=== PATIENT | female | born 1965 | race African-American/Black ===

== ENCOUNTER 2017-01-04 06:31 | Day surgery (SDC) | payer BC, OTHER ==
[2017-01-04] MEDS ORDERED: NS 500 ML IV 500 ML IV ONE (07:19)
[2017-01-04] MEDS ORDERED: TETRACAINE 0.5% OPHTH 1 DOSE AFFEYE ONE ×3 (07:30→10:10)
[2017-01-04] MEDS ORDERED: VIGAMOX 0.5% OPHTH 1 DOSE AFFEYE ONE ×5 (07:31→10:31)
[2017-01-04] MEDS ORDERED: PROLENSA OPHTH 1 DOSE AFFEYE ONE (07:42)
[2017-01-04] MEDS ORDERED: ALPHAGAN-P OPHTH 1 DOSE AFFEYE ONE (07:43)
[2017-01-04] MEDS ORDERED: CYCLOGYL 1% OPHTH 1 DOSE OP ONE ×3 (07:44→07:48)
[2017-01-04] MEDS ORDERED: AK-DILATE 2.5% OPHTH 1 DOSE OP ONE ×3 (07:44→07:48)
[2017-01-04] MEDS ORDERED: MYDRIACIL OPHTH 1 DOSE AFFEYE ONE ×3 (07:44→07:48)
[2017-01-04] MEDS ORDERED: BETADINE OPHTH SOLN 5% EACHEYE ONE (10:04)
[2017-01-04] MEDS ORDERED: XYLOCAINE-MPF 1% IJ ONE (10:10)
[2017-01-04] MEDS ORDERED: DUOVISC IO ONE (10:10)
[2017-01-04] MEDS ORDERED: ADRENALINE CHL INJ IJ ONE (10:10)
[2017-01-04] MEDS ORDERED: BSS OPHTH (PLAIN) 500 ML with VANCOMYCIN HCL 500 MG VIAL 25 MG, ADRENALINE CHL INJ 1 MG IR ONE ×3 (10:11)
[2017-01-04 13:48] VITALS: BP 152/76
[2017-01-04] MEDS ORDERED: DIPRIVAN VIAL ONE (15:24)
== END 2017-01-04 10:58 | disposition home or self-care (01) ==
LOC: SURG1 06:31
PROVIDERS: ATTEND Ophthalmology
PROC: 08RJ3JZ Replacement of Right Lens with Synthetic Substitute, Percutaneous Approach (ICD-10-PCS; principal; 2017-01-04 09:45)
PROC: 08DJ3ZZ Extraction of Right Lens, Percutaneous Approach (ICD-10-PCS; principal; 2017-01-04 09:45)
DX: H25.11 Age-related nuclear cataract, right eye (principal); H25.011 Cortical age-related cataract, right eye; H25.041 Posterior subcapsular polar age-related cataract, right eye
CPT/HCPCS: A4217; J0170; J3370; J3490

== ENCOUNTER 2017-02-15 07:53 | Day surgery (SDC) | payer BC ==
[2017-02-15] MEDS ORDERED: TETRACAINE 0.5% OPHTH 1 DOSE AFFEYE ONE ×4 (08:45→13:07)
[2017-02-15] MEDS ORDERED: VIGAMOX 0.5% OPHTH 1 DOSE AFFEYE ONE ×5 (08:46→13:26)
[2017-02-15] MEDS ORDERED: PROLENSA OPHTH 1 DOSE AFFEYE ONE (08:57)
[2017-02-15] MEDS ORDERED: ALPHAGAN-P OPHTH 1 DOSE AFFEYE ONE (08:58)
[2017-02-15] MEDS ORDERED: CYCLOGYL 1% OPHTH 1 DOSE OP ONE ×4 (08:59→09:02)
[2017-02-15] MEDS ORDERED: MYDRIACIL OPHTH 1 DOSE AFFEYE ONE ×4 (08:59→09:02)
[2017-02-15] MEDS ORDERED: AK-DILATE 2.5% OPHTH 1 DOSE OP ONE ×4 (08:59→09:02)
[2017-02-15] MEDS ORDERED: NS 500 ML IV 500 ML IV ONE (09:08)
[2017-02-15] MEDS ORDERED: BETADINE OPHTH SOLN 5% EACHEYE ONE (12:48)
[2017-02-15] MEDS ORDERED: BSS OPHTH (PLAIN) 500 ML with VANCOMYCIN HCL 500 MG VIAL 25 MG, ADRENALINE CHL INJ 1 MG IR ONE ×6 (13:00)
[2017-02-15] MEDS ORDERED: DUOVISC IO ONE ×2 (13:00→13:07)
[2017-02-15] MEDS ORDERED: XYLOCAINE-MPF 1% IJ ONE ×2 (13:00→13:07)
[2017-02-15] MEDS ORDERED: ADRENALINE CHL INJ IJ ONE ×2 (13:00→13:07)
[2017-02-15 16:22] VITALS: BP 180/88
== END 2017-02-15 13:50 | disposition home or self-care (01) ==
LOC: SURG1 07:53
PROVIDERS: ATTEND Ophthalmology
PROC: 08RK3JZ Replacement of Left Lens with Synthetic Substitute, Percutaneous Approach (ICD-10-PCS; principal; 2017-02-15 14:15)
PROC: 08DK3ZZ Extraction of Left Lens, Percutaneous Approach (ICD-10-PCS; principal; 2017-02-15 14:15)
DX: H25.12 Age-related nuclear cataract, left eye (principal); H25.012 Cortical age-related cataract, left eye; H25.042 Posterior subcapsular polar age-related cataract, left eye
CPT/HCPCS: A4217; J0170; J3370